=== PATIENT | female | born 1995 | race Caucasian/White ===

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

== ENCOUNTER 2017-02-06 14:08 | Emergency (ER) | payer OTHER ==
[2017-02-06] MEDS ORDERED: methylPREDNISolone 125 MG* 2 ML VIAL IV ONE (14:20)
[2017-02-06] MEDS ORDERED: NS 0.9% 1000 ML* 1,000 ML IV ONE (14:20)
[2017-02-06 14:40] LABS: Hematocrit 41 % (35-47); Hemoglobin 13.9 g/dl (12.0-16.0); Mean Corpuscular HGB Conc 34 g/dl (31-36); Mean Corpuscular Hemoglobin 29 pg (27-31); Mean Corpuscular Volume 86 fL (80-97); Mean Platelet Volume 7 um3 (7.4-10.4); Red Blood Count 4.83 10^6/ul (4.0-5.4); Red Cell Distribution Width 14 % (10.5-15); White Blood Count 14.1 10^3/ul (3.5-10.8)
[2017-02-06 15:03] LABS: Albumin 4.4 g/dL (3.2-5.2); BUN/Creatinine Ratio 8.1 (8-20); C Reactive Protein 16.47 mg/L (< 5.00); Calcium 9.6 mg/dL (8.6-10.3); EGFR Non-African American 101.1 (>60); Globulin 3.5 g/dL (2-4); Potassium 3.9 mmol/L (3.5-5.0); Total Bilirubin 0.5 mg/dL (0.2-1.0); Total Protein 7.9 g/dL (6.4-8.9)
[2017-02-06 15:06] LABS: PCO2 Arterial 39 mmHg (35-45)
[2017-02-06 15:24] LABS: Urine Bilirubin Negative (Negative); Urine Glucose Negative (Negative); Urine Nitrite Negative (Negative)
--- NOTE | 2017-02-06 15:27 | RAD ---
Indication: Shortness of breath. Sensation of fever. History of asthma. Comparison: November 01, 2016 Technique: Upright AP 1435 hours Report: Accounting for superimposed soft tissues the lungs and pleural spaces are clear. Negative for pneumothorax. The heart, pulmonary vasculature, and mediastinal contours are unremarkable. IMPRESSION: No evidence for pneumonia. Negative exam.
[2017-02-06] MEDS: Albuterol/Ipratropium NEB.SOL* Albuterol 2.5 MG/Ipratropium 0.5 MG 3 ML INH SCH ×2 (15:36→15:37)
[2017-02-06 17:27] VITALS: BP 126/60
--- NOTE | 2017-02-07 17:28 | ED ---
India Landry Edward, scribed for Morgan Cortés MD on 02/06/17 at 1422 . Asthma - HPI Summary HPI Summary: 21 y/o female presents to ED c/o gradual onset asthma exacerbation last night. SOB not alleviated with albuterol. Associated sx: pt had postnasal drip, mild sinus pain and rhinorrhea starting three mornings ago, wheezing. Pt developed SOB last night. PMHx asthma. - History of Current Complaint Chief Complaint: EDAsthma Stated Complaint: ASTHMA ISSUE Time Seen by Provider: 02/06/17 14:17 Hx Obtained From: Patient Hx Last Menstrual Period: 10/10/13 Onset/Duration: Gradual Onset, Lasting Hours, Still Present Pain Intensity: 0 Location/Character: Wheezing Associated Signs and Symptoms: Positive: Sinus Infection, Shortness of Breath - Allergy/Home Medications Allergies/Adverse Reactions: Allergies Allergy/AdvReac Type Severity Reaction Status Date / Time Dogs Allergy Mild Sneezing Uncoded 11/01/16 19:03 PMH/Surg Hx/FS Hx/Imm Hx Previously Healthy: No Endocrine/Hematology History: Denies: Hx Diabetes, Hx Thyroid Disease Cardiovascular History: Denies: Hx Hypertension, Hx Pacemaker/ICD Respiratory History: Reports: Hx Asthma - W/ALBUTEROL INHALER Denies: Hx Chronic Obstructive Pulmonary Disease (COPD) History: Denies: Hx Renal Disease Neurological History: Denies: Hx Dementia, Hx Seizures Psychiatric History: Denies: Hx Substance Abuse Infectious Disease History: No Infectious Disease History: Denies: Hx Hepatitis, Hx Human Immunodeficiency Virus (HIV), Traveled Outside the [place] in Last 30 Days - Family History Known Family History: Positive: Respiratory Disease - Asthma - Social History Alcohol Use: None Hx Substance Use: No Substance Use Type: Reports: None Hx Tobacco Use: No Smoking Status (MU): Never Smoked Tobacco Review of Systems Constitutional: Negative Eyes: Negative Positive: Nasal Discharge, Other - sinus pressure, post nasal drip Cardiovascular: Negative Positive: Shortness Of Breath, Other - wheezing Gastrointestinal: Negative Genitourinary: Negative Musculoskeletal: Negative Skin: Negative Neurological: Negative Psychological: Normal All Other Systems Reviewed And Are Negative: Yes Physical Exam - Summary Physical Exam Summary: VITAL SIGNS: Reviewed. GENERAL: ~Patient is an obese female who is lying comfortable in the stretcher. ~Patient is not in any acute respiratory distress. Pt is able to speak in full sentences. HEAD AND FACE: No signs of trauma. ~No ecchymosis, hematomas or skull depressions. No sinus tenderness. EYES: PERRLA, EOMI x 2, No injected conjunctiva, no nystagmus. EARS: Hearing grossly intact. Ear canals and tympanic membranes are within normal limits. MOUTH: Oropharynx within normal limits. NECK: Supple, trachea is midline, no adenopathy, no JVD, no carotid bruit, no c- spine tenderness, neck with full ROM. CHEST: Symmetric, no tenderness at palpation LUNGS: Decreased breath sounds bilaterally. Diffuse wheezing. CVS: Regular rate and rhythm, S1 and S2 present, no murmurs or gallops appreciated. ABDOMEN: Soft, non-tender. No signs of distention. No rebound no guarding, and no masses palpated. Bowel sounds are normal. EXTREMITIES: FROM in all major joints, no edema, no cyanosis or clubbing. NEURO: Alert and oriented x 3. No acute neurological deficits. Speech is normal and follows commands. SKIN: Dry and warm Triage Information Reviewed: Yes Vital Signs On Initial Exam: Initial Vitals Temp Pulse Resp BP Pulse Ox 98.0 F 114 22 155/100 93 02/06/17 14:11 02/06/17 14:11 02/06/17 14:11 02/06/17 14:11 02/06/17 14:11 Vital Signs Reviewed: Yes Diagnostics - Vital Signs Vital Signs Temp Pulse Resp BP Pulse Ox 02/06/17 14:11 98.0 F 114 22 155/100 93 - Laboratory Lab Results: Lab Results 02/06/17 02/06/17 02/06/17 Range/Units 14:26 14:26 14:26 WBC 14.1 H (3.5-10.8) 10^3/ul RBC 4.83 (4.0-5.4) 10^6/ul Hgb 13.9 (12.0-16.0) g/dl Hct 41 (35-47) % MCV 86 (80-97) fL MCH 29 (27-31) pg MCHC 34 (31-36) g/dl RDW 14 (10.5-15) % Plt Count 479 H (150-450) 10^3/ul MPV 7 L (7.4-10.4) um3 Neut % (Auto) 74.6 (38-83) % Lymph % (Auto) 14.2 L (25-47) % Wharton % (Auto) 6.9 (1-9) % Eos % (Auto) 4.1 (0-6) % Baso % (Auto) 0.2 (0-2) % Absolute Neuts (auto) 10.5 H (1.5-7.7) 10^3/ul Absolute Lymphs (auto) 2.0 (1.0-4.8) 10^3/ul Absolute Monos (auto) 1.0 H (0-0.8) 10^3/ul Absolute Eos (auto) 0.6 (0-0.6) 10^3/ul Absolute Basos (auto) 0 (0-0.2) 10^3/ul Absolute Nucleated RBC 0.01 10^3/ul Nucleated RBC % 0 ABG pH (7.35-7.45) ABG pCO2 (35-45) mmHg ABG pO2 (80-100) mmHg ABG HCO3 (19-31) mmol/L ABG O2 Saturation (95-98) % ABG Base Excess (-2.0-2.0) Sodium 134 (133-145) mmol/L Potassium 3.9 (3.5-5.0) mmol/L Chloride 100 L (101-111) mmol/L Carbon Dioxide 28 (22-32) mmol/L Anion Gap 6 (2-11) mmol/L BUN 6 (6-24) mg/dL Creatinine 0.74 (0.51-0.95) mg/dL Est GFR ( Amer) 130.0 (>60) Est GFR (Non-Af Amer) 101.1 (>60) BUN/Creatinine Ratio 8.1 (8-20) Glucose 80 (70-100) mg/dL Calcium 9.6 (8.6-10.3) mg/dL Total Bilirubin 0.50 (0.2-1.0) mg/dL AST 19 (13-39) U/L ALT 22 (7-52) U/L Alkaline Phosphatase 73 (34-104) U/L C-Reactive Protein 16.47 H (< 5.00) mg/L B-Natriuretic Peptide 48 ( - 100) pg/mL Total Protein 7.9 (6.4-8.9) g/dL Albumin 4.4 (3.2-5.2) g/dL Globulin 3.5 (2-4) g/dL Albumin/Globulin Ratio 1.3 (1-3) Beta HCG, Quant 0.66 mIU/mL Urine Color Urine Appearance Urine pH (5-9) Ur Specific [place] (1.010-1.030) Urine Protein (Negative) Urine Ketones (Negative) Urine Blood (Negative) Urine Nitrate (Negative) Urine Bilirubin (Negative) Urine Urobilinogen (Negative) Ur Leukocyte Esterase (Negative) Urine Glucose (Negative) 02/06/17 02/06/17 Range/Units 14:30 15:12 WBC (3.5-10.8) 10^3/ul RBC (4.0-5.4) 10^6/ul Hgb (12.0-16.0) g/dl Hct (35-47) % MCV (80-97) fL MCH (27-31) pg MCHC (31-36) g/dl RDW (10.5-15) % Plt Count (150-450) 10^3/ul MPV (7.4-10.4) um3 Neut % (Auto) (38-83) % Lymph % (Auto) (25-47) % Wharton % (Auto) (1-9) % Eos % (Auto) (0-6) % Baso % (Auto) (0-2) % Absolute Neuts (auto) (1.5-7.7) 10^3/ul Absolute Lymphs (auto) (1.0-4.8) 10^3/ul Absolute Monos (auto) (0-0.8) 10^3/ul Absolute Eos (auto) (0-0.6) 10^3/ul Absolute Basos (auto) (0-0.2) 10^3/ul Absolute Nucleated RBC 10^3/ul Nucleated RBC % ABG pH 7.44 (7.35-7.45) ABG pCO2 39 (35-45) mmHg ABG pO2 66 L (80-100) mmHg ABG HCO3 26.6 (19-31) mmol/L ABG O2 Saturation 96.5 (95-98) % ABG Base Excess 2.3 H (-2.0-2.0) Sodium (133-145) mmol/L Potassium (3.5-5.0) mmol/L Chloride (101-111) mmol/L Carbon Dioxide (22-32) mmol/L Anion Gap (2-11) mmol/L BUN (6-24) mg/dL Creatinine (0.51-0.95) mg/dL Est GFR ( Amer) (>60) Est GFR (Non-Af Amer) (>60) BUN/Creatinine Ratio (8-20) Glucose (70-100) mg/dL Calcium (8.6-10.3) mg/dL Total Bilirubin (0.2-1.0) mg/dL AST (13-39) U/L ALT (7-52) U/L Alkaline Phosphatase (34-104) U/L C-Reactive Protein (< 5.00) mg/L B-Natriuretic Peptide ( - 100) pg/mL Total Protein (6.4-8.9) g/dL Albumin (3.2-5.2) g/dL Globulin (2-4) g/dL Albumin/Globulin Ratio (1-3) Beta HCG, Quant mIU/mL Urine Color Straw Urine Appearance Clear Urine pH 7.0 (5-9) Ur Specific [place] 1.006 L (1.010-1.030) Urine Protein Negative (Negative) Urine Ketones Negative (Negative) Urine Blood Negative (Negative) Urine Nitrate Negative (Negative) Urine Bilirubin Negative (Negative) Urine Urobilinogen Negative (Negative) Ur Leukocyte Esterase Negative (Negative) Urine Glucose Negative (Negative) Result Diagrams: 02/06/17 14:26 02/06/17 14:26 Lab Statement: Any lab studies that have been ordered have been reviewed, and results considered in the medical decision making process. - Radiology CXR Xray Interpretation: No Acute Changes - No evidence for pneumonia. Negative exam. Radiology Interpretation Completed By: Radiologist Asthma Course/Dx - Course Assessment/Plan: 21 y/o female presents to ED c/o gradual onset asthma exacerbation last night. SOB not alleviated with albuterol. Associated sx: pt had postnasal drip, mild sinus pain and rhinorrhea starting three mornings ago, wheezing. Pt developed SOB last night. PMHx asthma. CXR SHOWS No evidence for pneumonia. Negative exam. Test results show WBC 14.1 , CRP 16.47. UA (-) UTI.. ABG shows ph 7.44, pco2 39, p02 66, o2 sat 96.5%. CXR no evidence for PNA. In the ED course the patient was given multiple duonebs, and solumedryl. After medications the sx improved. Pt is eating and drinking and feeling well. The pt was d/c home with f/u with pcp. The pt was given a prescription for prednisone for the next 4 days. The pt was instructed to return if she develops worsening symptoms. - Diagnoses Differential Diagnosis/HQI/PQRI: Positive: Acute Asthma, Bronchitis, CHF, Pneumonia Provider Diagnoses: Asthma exacerbation Discharge - Discharge Plan Condition: Good Disposition: HOME Prescriptions: predniSONE TAB* [Deltasone TAB*] 40 mg PO DAILY #8 tab Patient Education Materials: Asthma (ED) Referrals: Gracia Downs MARKET MANAGER [Primary Care Provider] - 3 Days (2-3 days please) The documentation as recorded by the India qureshi Edward accurately reflects the service I personally performed and the decisions made by Moo amor Walter, MD.
== END 2017-02-06 17:47 | disposition home or self-care (01) ==
LOC: ED 14:08
DX: J45.901 Unspecified asthma with (acute) exacerbation (principal)
CPT/HCPCS: 36415; 36600; 71010; 80053; 81003; 82803; 83880; 84702; 85025; 86140; 94640; 96374; 99283; A9270-GY; J2930

== ENCOUNTER → 2018-06-05 16:13 | Emergency (ER) | payer BC, OTHER ==
[~2018-06-05 16:13] MED LIST: Albuterol/Ipratropium NEB.SOL* Albuterol 2.5 MG/Ipratropium 0.5 MG 3 ML INH ONE; Dexamethasone IV* 4 MG/ML 1 ML (4 MG) IM ONE; predniSONE TAB* 20 MG PO ONE
[2018-06-05 17:36] VITALS: BP 146/82
--- NOTE | 2018-06-05 17:36 | ED ---
Asthma - HPI Summary HPI Summary: Patient complains of asthma attack, shortness of breath, chest tightness while walking up the hill in the cold. Patient O2 sats in the 80s per EMS. Received nebulizer treatment 2 by EMS without steroids. Patient denies any other symptoms, injury or pain. Medical history is asthma, allergies. Patient has inhaler and nebulizer at home. - History of Current Complaint Chief Complaint: EDAsthma Stated Complaint: POSS ASTHMA ATTACK Time Seen by Provider: 06/05/18 16:21 Hx Obtained From: Patient Hx Last Menstrual Period: 10/10/13 Onset/Duration: Sudden Onset Timing: Hours Initial Severity: Severe Current Severity: Severe Pain Intensity: 8 Pain Scale Used: 0-10 Numeric Location/Character: Wheezing Aggravating Symptoms: Weather Change Alleviating Symptoms: Inhalers/Nebulizers Associated Signs and Symptoms: Positive: Shortness of Breath - Allergy/Home Medications Allergies/Adverse Reactions: Allergies Allergy/AdvReac Type Severity Reaction Status Date / Time Dogs Allergy Mild Sneezing Uncoded 11/01/16 19:03 PMH/Surg Hx/FS Hx/Imm Hx Endocrine/Hematology History: Denies: Hx Diabetes, Hx Thyroid Disease Cardiovascular History: Denies: Hx Hypertension, Hx Pacemaker/ICD Respiratory History: Reports: Hx Asthma - W/ALBUTEROL INHALER Denies: Hx Chronic Obstructive Pulmonary Disease (COPD) History: Denies: Hx Renal Disease Sensory History: Denies: Hx Eye Prosthesis EENT History: Denies: Hx Deafness Neurological History: Denies: Hx Dementia, Hx Seizures Psychiatric History: Denies: Hx Autism, Hx Substance Abuse Infectious Disease History: No Infectious Disease History: Denies: Hx Hepatitis, Hx Human Immunodeficiency Virus (HIV), Traveled Outside the [place] in Last 30 Days - Family History Known Family History: Positive: Respiratory Disease - Asthma - Social History Alcohol Use: None Hx Substance Use: No Substance Use Type: Reports: None Hx Tobacco Use: No Smoking Status (MU): Never Smoked Tobacco Review of Systems Constitutional: Negative Eyes: Negative ENT: Negative Cardiovascular: Negative Positive: Shortness Of Breath Gastrointestinal: Negative Genitourinary: Negative Musculoskeletal: Negative Skin: Negative Neurological: Negative Psychological: Normal All Other Systems Reviewed And Are Negative: Yes Physical Exam Triage Information Reviewed: Yes Vital Signs On Initial Exam: Initial Vitals Temp Pulse Resp BP Pulse Ox 99.1 F 125 20 156/105 98 06/05/18 16:19 06/05/18 16:19 06/05/18 16:19 06/05/18 16:19 06/05/18 16:19 Vital Signs Reviewed: Yes Appearance: Positive: Well-Appearing Skin: Positive: Warm Head/Face: Positive: Normal Head/Face Inspection Eyes: Positive: Normal ENT: Positive: Normal ENT inspection Neck: Positive: Supple Respiratory/Lung Sounds: Positive: Wheezes - Mild, Bilateral lower lobes Cardiovascular: Positive: Normal Abdomen Description: Positive: Nontender Musculoskeletal: Positive: Normal Neurological: Positive: Normal Psychiatric: Positive: Normal AVPU Assessment: Alert - [place] Coma Scale Best Eye Response: 4 - Spontaneous Best Motor Response: 6 - Obeys Commands Best Verbal Response: 5 - Oriented Coma Scale Total: 15 Diagnostics - Vital Signs Vital Signs Temp Pulse Resp BP Pulse Ox 06/05/18 16:19 99.1 F 125 20 156/105 98 - Laboratory Lab Statement: Any lab studies that have been ordered have been reviewed, and results considered in the medical decision making process. Asthma Course/Dx - Course Course Of Treatment: Patient complains of asthma attack, shortness of breath, chest tightness while walking up the hill in the cold. Patient O2 sats in the 80s per EMS. Received nebulizer treatment 2 by EMS without steroids. Patient denies any other symptoms, injury or pain. Medical history is asthma, allergies. Patient has inhaler and nebulizer at home. Mild wheezes in lower lobes bilaterally. O2 sats per EMS on truck prior to DuoNeb 2 in the 80s. Patient O2 sats here in the ED within normal limits. Patient given Decadron 10 mg IM. Patient observed for an hour. Ambulated after an hour, O2 sats 98%. Rx for prednisone. - Diagnoses Provider Diagnoses: Asthma attack Discharge - Sign-Out/Discharge Documenting (check all that apply): Patient Departure - Discharge Plan Condition: Stable Disposition: HOME Prescriptions: predniSONE TAB* [Deltasone 20 MG TAB*] 40 mg PO DAILY 5 Days #10 tab Patient Education Materials: Bronchospasm (ED) Referrals: Gracia Downs NP [Primary Care Provider] - Additional Instructions: Use inhaler and nebulizer at home as directed. Take prednisone daily for the next 5 days. Return to the ED for any new or worsening symptoms - Billing Disposition and Condition Condition: STABLE Disposition: Home
== END | disposition home or self-care (01) ==
LOC: ED 16:13
DX: J45.901 Unspecified asthma with (acute) exacerbation (principal)
CPT/HCPCS: 96372; 99283; J1100

== ENCOUNTER 2019-05-28 18:24 | Emergency (ER) | payer BC ==
--- NOTE | 2019-05-28 18:30 | ED ---
Laceration/Wound HPI - HPI Summary HPI Summary: 23-year-old [id number] female with no significant past medical history presents to the emergency department today after cutting her left thumb with a knife while preparing frozen chicken. Patient currently has her laceration covered with a pain scale. Tetanus is up-to-date. Patient has full range of motion and is neurovascularly intact. The patient endorses 2 out of 10 pain. Patient has not taken any medication prior to arrival. Patient otherwise feels well and denies fever, chest pain, abdominal pain, shortness of breath. - History of Current Complaint Stated Complaint: LEFT THUMB INJURY PER PT Time Seen by Provider: 05/28/19 18:30 Hx Obtained From: Patient Hx Last Menstrual Period: 10/10/13 Mechanism of Injury: Sharp/Blunt Trauma Onset/Duration: Lasting Hours Aggravating: Movement Alleviating: Compression Timing: Constant Onset Severity: Moderate Current Severity: Moderate Pain Intensity: 4 Pain Scale Used: 0-10 Numeric Associated Signs & Symptoms: Pain Related Hx: Dominant Hand (Right) - Allergy/Home Medications Allergies/Adverse Reactions: Allergies Allergy/AdvReac Type Severity Reaction Status Date / Time Dogs Allergy Mild Sneezing Uncoded 05/28/19 18:28 PMH/Surg Hx/FS Hx/Imm Hx Endocrine/Hematology History: Denies: Hx Diabetes, Hx Thyroid Disease Cardiovascular History: Denies: Hx Hypertension, Hx Pacemaker/ICD Respiratory History: Reports: Hx Asthma - W/ALBUTEROL INHALER Denies: Hx Chronic Obstructive Pulmonary Disease (COPD) History: Denies: Hx Renal Disease Sensory History: Denies: Hx Eye Prosthesis, Hx Deafness Opthamlomology History: Denies: Hx Eye Prosthesis Neurological History: Denies: Hx Dementia, Hx Seizures Psychiatric History: Denies: Hx Autism, Hx Substance Abuse Infectious Disease History: No Infectious Disease History: Denies: Hx Hepatitis, Hx Human Immunodeficiency Virus (HIV), Traveled Outside the [place] in Last 30 Days - Family History Known Family History: Positive: Respiratory Disease - Asthma - Social History Alcohol Use: None Hx Substance Use: No Substance Use Type: Reports: None Hx Tobacco Use: No Smoking Status (MU): Never Smoked Tobacco Review of Systems Constitutional: Negative Eyes: Negative ENT: Negative Cardiovascular: Negative Respiratory: Negative Gastrointestinal: Negative Genitourinary: Negative Musculoskeletal: Negative Skin: Negative Neurological: Negative Psychological: Normal All Other Systems Reviewed And Are Negative: Yes Physical Exam - Summary Physical Exam Summary: There is a 2 cm laceration to the left thumb. Hemostasis achieved. Linear laceration with clear margins. Triage Information Reviewed: Yes Vital Signs On Initial Exam: Initial Vitals Temp Pulse Resp BP Pulse Ox 98.0 F 98 16 164/113 92 05/28/19 18:25 05/28/19 18:25 05/28/19 18:25 05/28/19 18:25 05/28/19 18:25 Vital Signs Reviewed: Yes Appearance: Positive: Well-Appearing, No Pain Distress, Well-Nourished Skin: Positive: Warm, Skin Color Reflects Adequate Perfusion Eyes: Positive: EOMI, ROSHNI ENT: Positive: Hearing grossly normal Respiratory/Lung Sounds: Positive: Clear to Auscultation, Breath Sounds Present Cardiovascular: Positive: RRR, S1, S2 Bowel Sounds: Positive: Present Musculoskeletal: Positive: Strength/ROM Intact Neurological: Positive: Sensory/Motor Intact, Alert, Oriented to Person Place, Time, Normal Gait, Facial Symmetry, Speech Normal Psychiatric: Positive: Normal, Affect/Mood Appropriate AVPU Assessment: Alert Procedures - Sedation Patient Received Moderate/Deep Sedation with Procedure: No - Laceration/Wound Repair 1 Location: upper extremity Description: Linear Anesthesia: Local, 1.0% Length, Depth and Shape: 2 cm in length by 2 mm in width by 3 mm in depth Betadine Prep?: No Irrigated w/ Saline (ccs): 100 Laceration/Wound Explored: clean Closure: Single Layer Suture Type: Nylon Number of Sutures: 3 - 5-0 Prolene Layer Closure?: No Sterile Dressing Applied?: Yes Diagnostics - Vital Signs Vital Signs Temp Pulse Resp BP Pulse Ox 05/28/19 18:25 98.0 F 98 16 164/113 92 - Laboratory Lab Statement: Any lab studies that have been ordered have been reviewed, and results considered in the medical decision making process. Laceration Repair Course/Dx - Course Course Of Treatment: patient was evaluated in the emergency department today for laceration to her left thumb. Patient seen and examined her vitals are stable and she is afebrile. Patient's wound was irrigated with normal saline and then repaired with 3 simple interrupted 5-0 nylon sutures. Hemostasis achieved. Patient neurovascularly intact. Dressing applied to wound. Tetanus update was not needed. Patient deferred pain medication. Patient told to have sutures removed in 8 days. Patient discharged with outpatient follow-up. - Differential Dx Differental Diagnoses: Laceration, Tendon Laceration - Clinical Impression Provider Diagnoses: Laceration of left thumb Discharge ED - Sign-Out/Discharge Documenting (check all that apply): Patient Departure - Discharge Plan Condition: Stable Disposition: HOME Patient Education Materials: Care For Your Stitches (ED), Laceration (ED) Referrals: Madonna Minor MD [Primary Care Provider] - 5 Days Additional Instructions: You were seen in the emergency department today due to a laceration to your finger. Your sutures may be removed in 8 days. To do this you may see a primary care physician or this emergency Department. Please keep your wound dry and intact for 24 hours. Then you may gently rinse with warm soapy water and pat it dry. Please be sure to wear gloves while working to prevent infection. Please return to the emergency department immediately if you develop any new or worsening symptoms. - Billing Disposition and Condition Condition: STABLE Disposition: Home
[2019-05-28 20:09] VITALS: BP 126/74
== END 2019-05-28 20:05 | disposition home or self-care (01) ==
LOC: ED 18:24
DX: S61.012A Laceration without foreign body of left thumb without damage to nail, initial encounter (principal); W26.0XXA Contact with knife, initial encounter; Y93.G1 Activity, food preparation and clean up; Y92.9 Unspecified place or not applicable; J45.909 Unspecified asthma, uncomplicated; Z91.09 Other allergy status, other than to drugs and biological substances
CPT/HCPCS: 12001; 99282

== ENCOUNTER 2019-06-21 10:41 | Emergency (ER) | payer BC ==
--- OUTSIDE RECORDS SUMMARY | 2019-06-21 10:48 | XMS REPORT | Continuity of Care Document ---
:1995 External Reference #:[id number] Author Name Martha Roberto M.D., FACP (transmitted by agent of provider Annette Gonzalez) Address [address], [place] [address] Care Team Providers Name Role Phone Madonna Minor M.D. - Family Medicine Care Team Information Senior Account Manager [phone] Problems Description No Information Available Social History Type Date Description Comments Sex Unknown Tobacco Use Start: Unknown Never Smoked Cigarettes exposed to second hand smoke her whole life Smoking Status Reviewed: 06/05/19 Never Smoked Cigarettes exposed to second hand smoke her whole life ETOH Use Denies alcohol use Tobacco Use Start: Unknown Patient has never smoked Recreational Drug Use Never Used Drugs Allergies, Adverse Reactions, Alerts Active Allergies Reaction Severity Comments Date Cat Dander 12/12/2018 Dog Dander 12/12/2018 Medications Active Medications SIG Qnty Indications Ordering Date Provider Vym-Xw-Uacoskvo take 1 pill daily 28tabs Madonna Minor MD 12/12/2018 as instructed 0.18/0.215/0.25 mg-25 mcg Tablets Ventolin HFA 1 to 2 inhalations 18units Madonna Minor MD 12/12/2018 every 4 hours as 108(90Base) mcg/Act needed Aerosol Montelukast Sodium 1 by mouth every 30tabs J45.40 Madonna Minor MD 2018 day 10mg Tablets Flovent HFA 1 inhalation twice 12gm J45.40 Madonna Minor MD 12/12/2018 a day, rinse mouth 110mcg/Act Aerosol out after each use Daily Vitamin by mouth every day Unknown Tablets Immunizations CPT Code Status Date Vaccine Reaction Lot # [id number] Given 03/14/2019 Influenza Virus Vaccine, pt. tolerated well. dg [id number] Quadrivalent (Cciiv4), Derived From Cell Vital Signs Date Vital Result Comment 06/05/2019 3:46pm Height 62 inches 5'2" Weight 188.00 lb BP Systolic Sitting 133 mmHg Rue Lg Cuff BP Diastolic Sitting 86 mmHg Rue Lg Cuff O2 % BldC Oximetry 99 % BMI (Body Mass Index) 34.4 kg/m2 03/14/2019 11:46am Height 62 inches 5'2" Weight 182.00 lb Heart Rate 81 /min BP Systolic Sitting 141 mmHg BP Diastolic Sitting 88 mmHg Body Temperature 96.8 F O2 % BldC Oximetry 98 % BMI (Body Mass Index) 33.3 kg/m2 Results Test Acquired Date Facility Test Result H/L Range Note Cytology 03/15/2019 [facility] Cytology SEE RESULT BELOW [address] [place] [address] [phone] PDFReport SEE IMAGE Laboratory test 03/14/2019 [facility] Cytology <pending> finding [address] [place] [address] [phone] GC/Chlamydia 12/12/2018 [facility] Chlamydia Negative Negative Amplified Rna [address] [place] [address] [phone] Neisseria gonorrhoeae (GC) Rna Negative Negative Laboratory test 12/12/2018 [facility] Syphillis Igg Negative Negative finding [address] [place] [address] [phone] HIV 1&2 p24 12/12/2018 [facility] HIV 4th Negative Negative Screen [address] [place] [address] [phone] 1 SEE RESULT BELOW Name: ROXANNADEYSIAURE : [address]: Madonna Minor MD Acct: [id number] Unit: [id number] AGE: 23 Location: [facility] Re03/14/19 SEX: F Status: REG REF SPEC: [id number] AUGIE: 03/14/[address] [facility] [address]: Madonna Minor MD REQ: [id number] RECD: 03/15/19 STATUS: SOUT _ ORDERED: TP IMAGE ANALYS COMMENTS: [id number] THIS IS A CORRECTED REPORT 04/07/19 Corrected Report FINAL DIAGNOSIS Negative for Intraepithelial lesion or Malignancy SPECIMEN(S) RECEIVED A. Ectocervical/Endocervical CYTOLOGY ADEQUACY Specimen Adequacy: Satisfactory of evaluation Transformation zone component identified CYTOLOGY PATIENT INFORMATION Patient Information: HPV: Thin Layer Pap Test w/reflex to high risk HPV RNA testing when ASCUS Actual Specimen Date: 03/14/19 Last Menstrual Date: 03/09/19 ?: N Post Menopausal?: N Hysterectomy?: N Previous Abnormal Pap Smears?:N Signed by and Reported on: KATHLEEN Sy(ASCP) 100 This Pap test was evaluated with the assistance of the ?p Test Imaging System. Due to cytologic findings at the blanket winder operator microscope, comprehensive manual rescreening by a Crocheter may be required. The Pap Smear is a screening test designed to aid in the detection of premalignant and malignant conditions of the uterine cervix. It is not a diagnostic procedure and should not be used as the sole means of detecting cervical cancer. Both false- positive and false- negative reports do occur. Depending on your risk status, a Pap smear should be obtained and evaluated every 1-3 years. CONTINUED ON NEXT PAGE DEPARTMENT OF PATHOLOGY, [address] [place] [address] Marv Antoine M.D. Director [facility] # [id number] Procedures Description No Information Available Medical Devices Description No Information Available Encounters Type Date Location Provider Dx Diagnosis Office Visit 12/12/2018 [facility] Internal Madonna Minor MD J45.40 Moderate [facility], [facility] Z[facility].3 Encntr screen for infections w sexl mode of transmiss Assessments Date Code Description Provider 06/05/2019 S61.012A Laceration without foreign body of left Martha Roberto M.D., FACP thumb without damage to nail, initial encounter 03/14/2019 Z01.419 Encounter for gynecological examination Madonna Minor MD (general) (routine) without abnormal findings 03/14/2019 Z23 Encounter for immunization Madonna Minor MD 12/12/2018 J45.40 Moderate persistent asthma, uncomplicated Madonna Minor MD 12/12/2018 Z11.3 Encounter for screening for infections Madonna Minor MD with a predominantly Plan of Treatment Future Appointment(s):03/18/2020 4:00 pm - Madonna Minor MD at [facility] Internal Medicine - [facility]06/05/2019 - Martha Roberto M.D., FACPS61.012A Laceration without foreign body of left thumb without damage to nail, initial encounterComments: THUMB LACERATION:Today we removed the sutures that were placed in the Emergency Department last week.Your wound does not appear infected, but I recommend that you use the triple antibiotic ointment daily. Try to keep it clean and dry.Call back right away if the area appears red or hot or itchy. Functional Status Description No Information Available Mental Status Description No Information Available Referrals Description No Information Available
[2019-06-21 11:21] VITALS: BP 156/101
--- NOTE | 2019-06-21 12:58 | UC ---
Throat Pain/Nasal Zachery HPI - HPI Summary HPI Summary: 23-year-old female presents with complaints of a sore throat that started yesterday. Symptoms are associated with fatigue, nasal congestion, clear nasal discharge, postnasal drip, and occasional dry nonproductive cough. Reports her younger brother was diagnosed with strep throat today. Denies fever, chills, ear pain, dysphagia, chest pain, shortness of breath, wheezing, abdominal pain, nausea, vomiting, or diarrhea. - History of Current Complaint Chief Complaint: UCRespiratory Stated Complaint: SORE THROAT Time Seen by Provider: 06/21/19 12:20 Hx Obtained From: Patient Hx Last Menstrual Period: 06/21/19 Pain Intensity: 7 - Allergies/Home Medications Allergies/Adverse Reactions: Allergies Allergy/AdvReac Type Severity Reaction Status Date / Time Dogs Allergy Mild Sneezing Uncoded 06/21/19 11:21 Home Medications: Home Medications Acetaminophen [Mapap] 500 mg PO ONCE PRN 06/21/19 [History Confirmed 06/21/19] Multivitamin [Multivitamins] 1 tab PO DAILY 06/21/19 [History Confirmed 06/21/19 ] Norgestimate-Ethinyl Estradiol [Mab-Hc-Vwtbuhby Tablet] 1 tab PO DAILY 06/21/19 [History Confirmed 06/21/19] Phenylephrine/Dm/Acetaminop/GG [Tylenol Cold-Flu Severe Caplet] 1 tab PO ONCE PRN 06/21/19 [History Confirmed 06/21/19] PMH/Surg Hx/FS Hx/Imm Hx Respiratory History: Asthma - Surgical History Surgical History: Yes Surgery Procedure, Year, and Place: palate repair. ear tubes - Family History Known Family History: Positive: Respiratory Disease - Asthma - Social History Occupation: Student Lives: Dormitory/Roommates Alcohol Use: Occasionally Substance Use Type: None Smoking Status (MU): Never Smoked Tobacco Household Exposure Type: Cigarettes - Immunization History Vaccination Up to Date: Yes Review of Systems All Other Systems Reviewed And Are Negative: Yes Constitutional: Positive: Fatigue. Negative: Fever, Chills Skin: Negative: Rash Eyes: Negative: Drainage, Eye Redness ENT: Positive: Sore Throat, Nasal Discharge, Sinus Congestion. Negative: Ear Ache, Sinus Pain/Tenderness Respiratory: Positive: Cough. Negative: Shortness Of Breath Cardiovascular: Negative: Palpitations, Chest Pain Gastrointestinal: Negative: Abdominal Pain, Vomiting, Diarrhea, Nausea Genitourinary: Positive: Negative Musculoskeletal: Positive: Negative Neurological: Positive: Negative Is Patient Immunocompromised?: No Physical Exam - Summary Physical Exam Summary: GENERAL APPEARANCE: Well developed, well nourished, alert and cooperative, and appears to be in no acute distress. EYES: Conjunctiva clear. No drainage. EARS: External auditory canals and tympanic membranes clear, hearing grossly intact. NOSE: Moderate nasal congestion. Clear nasal discharge. THROAT: Pharyngeal erythema. No tonsilar inflammation, swelling, exudate, or lesions. Uvula midline. NECK: Neck supple, non-tender without lymphadenopathy. CARDIAC: Normal S1 and S2. No S3, S4 or murmurs. Rhythm is regular. There is no peripheral edema, cyanosis or pallor. Extremities are warm and well perfused. Capillary refill is less than 2 seconds. Peripheral pulses intact. LUNGS: Clear to auscultation without rales, rhonchi, wheezing or diminished breath sounds. Dry nonproductive cough ABDOMEN: Positive bowel sounds. Soft, nondistended, nontender. No guarding or rebound. No masses or hepatosplenomegally. MUSKULOSKELETAL: ROM intact to all extremities. No joint erythema or tenderness. Normal muscular development. Normal gait. SKIN: Skin normal color, texture and turgor with no lesions or eruptions. Triage Information Reviewed: Yes Vital Signs: Initial Vital Signs Temp 97.3 F 06/21/19 11:17 Pulse 86 06/21/19 11:17 Resp 18 06/21/19 11:17 BP 156/101 06/21/19 11:17 Pulse Ox 99 06/21/19 11:17 Vital Signs Reviewed: Yes Throat Pain/Nasal Course/Dx - Course Course Of Treatment: 23-year-old female presents with complaints of a sore throat that started yesterday. Symptoms are associated with fatigue, nasal congestion, clear nasal discharge, postnasal drip, and occasional dry nonproductive cough. Reports her younger brother was diagnosed with strep throat today. Denies fever, chills, ear pain, dysphagia, chest pain, shortness of breath, wheezing, abdominal pain, nausea, vomiting, or diarrhea. Afebrile. Hypertensive otherwise vital signs stable. Patient had moderate nasal congestion, clear nasal discharge, pharyngeal erythema without tonsillar swelling or exudate, no cervical lymphadenopathy, clear bilateral breath sounds, dry nonproductive cough, and otherwise unremarkable exam. Rapid strep test was negative. Rapid influenza test was positive for influenza A. Reviewed results with the patient and discussed the risks and benefits of starting Tamiflu and patient is electing not to start at this time. I have recommended symptomatic treatment. She is to follow-up with her primary care provider in 5-7 days if symptoms are not improving. Anticipatory guidance warning symptoms were reviewed with the patient. Verbalizes understanding and agrees with plan of care. - Differential Dx/Diagnosis Differential Diagnosis/HQI/PQRI: Mononucleosis, Peritonsillar Abscess, Pharyngitis, Tonsillitis, URI Provider Diagnosis: Influenza A Discharge ED - Sign-Out/Discharge Documenting (check all that apply): Patient Departure All imaging exams completed and their final reports reviewed: No Studies - Discharge Plan Condition: Stable Disposition: HOME Patient Education Materials: Influenza (ED) Forms: *Work Release Referrals: Madonna Minor MD [Primary Care Provider] - 5 Days Additional Instructions: Your rapid strep test in the clinic today was negative. Your flu test in the clinic today was positive for influenza A. Get plenty of rest. Drink plenty of fluids to avoid dehydration especially if you are running any fever. Use an over the counter decongestant such as Sudafed according to directions to help with the nasal congestion. Take over the counter acetaminophen (Tylenol) or ibuprofen (Advil, Motrin) according to directions as needed for pain or fever. Use salt water gargles several times a day if you have a sore throat. You may also use Chloraseptic spray or Cepacol lonzenges according to directions which contain a numbing medication and can provide some temporary relief from your sore throat. Follow up with your primary care provider in 5-7 days if symptoms persist. Seek immediate medical attention in the emergency room if you have fever greater than 100.5 F despite taking acetaminophen or ibuprofen, have chest pain , difficulty breathing, are unable to swallow, or have any worsening of symptoms. - Billing Disposition and Condition Condition: STABLE Disposition: Home
[2019-06-21 13:16] LABS: Influenza A Molecular POSITIVE (Negative)
== END 2019-06-21 13:51 | disposition home or self-care (01) ==
LOC: UCEAST 10:41
DX: J10.1 Influenza due to other identified influenza virus with other respiratory manifestations (principal); J45.909 Unspecified asthma, uncomplicated; Z91.09 Other allergy status, other than to drugs and biological substances
CPT/HCPCS: 87651; 99211; G0463